=== PATIENT | male | born 1970 | race Caucasian/White ===

== ENCOUNTER 2023-03-11 21:40 | Inpatient (IN) | payer MEDICAID ==
[~2023-03-11] VITALS: Ht 175.3 cm; Wt 121.1 kg
[2023-03-11 22:02] VITALS: BP_SYST 163
[2023-03-11 22:36] LABS: BASOPHILS % (AUTO) 0.7 % (0.0-2.0); EOSINOPHILS # (AUTO) 0.3 K/uL (0.0-0.4); EOSINOPHILS % (AUTO) 5.2 % (0.0-4.0); HEMATOCRIT 37.7 % (36-54); HEMOGLOBIN 12.3 g/dL (14.0-18.0); LYMPHOCYTES # (AUTO) 1.3 K/uL (1.0-5.5); LYMPHOCYTES % (AUTO) 21.1 % (20.5-51.5); MEAN CORPUSCULAR HEMOGLOBIN 28 pg (27-31); MEAN CORPUSCULAR HGB CONC 33 % (32-36); MEAN CORPUSCULAR VOLUME 85 fL (79.0-98.0); MONOCYTES # (AUTO) 0.8 K/uL (0.0-1.0); MONOCYTES % (AUTO) 12.4 % (1.7-9.3); NEUTROPHILS # (AUTO) 3.9 K/uL (1.8-7.7); NEUTROPHILS % (AUTO) 60.6 % (40.0-70.0); PLATELET COUNT (AUTO) 185 K/uL (130-430); RED BLOOD CELL COUNT(AUTO) 4.43 MIL/uL (4.2-6.2); RED CELL DISTRIBUTION WIDTH 16.2 % (9.0-15.0); WHITE BLOOD COUNT (AUTO) 6.4 K/uL (4.8-10.8)
[2023-03-11 22:50] LABS: ALANINE AMINOTRANSFERASE 31 U/L (12-78); ALBUMIN 2.8 g/dL (3.4-4.8); ANION GAP 7 (5-15); ASPARTATE AMINOTRANSFERASE 43 U/L (10-37); CALCIUM 8.1 mg/dL (8.4-11.0); CHLORIDE 103 mmol/L (98-107); CREATININE 0.94 mg/dL (0.55-1.30); GFR AFRICAN AMERICAN 109 mL/min (>90); GLUCOSE 147 mg/dL (70-99); TOTAL BILIRUBIN 0.7 mg/dL (0.0-1.0); UREA NITROGEN, BLOOD 12 mg/dL (8-21)
[2023-03-11] MEDS ORDERED: FUROSEMIDE 40 MG/4 ML VIAL IVP ONE (23:30)
[2023-03-12] MEDS ORDERED: SPIR25TA PO (00:20)
[2023-03-12] MEDS ORDERED: FURO-149 PO (00:20)
[2023-03-12] MEDS ORDERED: LISI2.5T48 PO (00:20)
[2023-03-12] MEDS ORDERED: CARV3.1246 PO (00:21)
[2023-03-12 01:53] VITALS: BP_SYST 129
[2023-03-12 07:51] VITALS: BP_SYST 103
[2023-03-12] MEDS ORDERED: FUROSEMIDE 40 MG/4 ML VIAL IVP ONE (09:00)
[2023-03-12] MEDS ORDERED: lisinopriL 5 MG TABLET PO ONE (09:45)
[2023-03-12] MEDS ORDERED: CARVEDILOL 3.125 MG TABLET (COREG) PO ONE (09:45)
[2023-03-12 10:59] VITALS: BP_SYST 139
[2023-03-12] MEDS: SPIRONOLACTONE 25 MG TABLET (ALDACTONE) PO ONE ×2 (11:01→11:07)
[2023-03-12] MEDS: INSULIN LISPRO SLIDING SCALE 100 UNITS/ML, 3 ML VIAL (humaLOG) SUBCUT PRN ×2 (11:25→21:54)
[2023-03-12 12:35] LABS: BARBITURATE, URINE NEGATIVE (NEG <=200); BENZODIAZEPINE, URINE NEGATIVE (NEG <=150); CANNABINOID, URINE NEGATIVE (NEG <=50); COCAINE, URINE NEGATIVE (NEG <=150); METHAMPHETAMINES SCREEN,URINE NEGATIVE (NEG <=500); OPIATE, URINE NEGATIVE (NEG <=100); PHENCYCLIDINE SCREEN,URINE NEGATIVE (NEG <=25); UR TRICYCLIC ANTIDEPRESSANTS NEGATIVE (NEG <=300); URINE AMPHETAMINE NEGATIVE (NEG <=500); URINE METHADONE NEGATIVE (NEG <=200); URINE OXYCODONE SCREEN NEGATIVE (NEG <=100); URINE PROPOXYPHENE SCREEN NEGATIVE (NEG <=300)
[2023-03-12] MEDS ORDERED: LOSARTAN POTASSIUM 25 MG TABLET PO ONE (13:00)
[2023-03-12] MEDS ORDERED: FUROSEMIDE 20 MG/2 ML VIAL IVP ONE (14:00)
[2023-03-12 15:13] VITALS: BP_SYST 143
[2023-03-12] MEDS: FUROSEMIDE 20 MG/2 ML VIAL IVP SCH (15:17)
[2023-03-12 20:00] VITALS: BP_SYST 154
[2023-03-12] MEDS ORDERED: CARVEDILOL 3.125 MG TABLET (COREG) PO SCH (21:00)
[2023-03-12] MEDS: CARVEDILOL 3.125 MG TABLET (COREG) PO SCH (21:52)
[2023-03-13] VITALS: BP_SYST 132
[2023-03-13 04:00] VITALS: BP_SYST 149
[2023-03-13 07:56] VITALS: BP_SYST 136
[2023-03-13] MEDS: CARVEDILOL 3.125 MG TABLET (COREG) PO SCH ×2 (08:26→20:41)
[2023-03-13] MEDS: LOSARTAN POTASSIUM 25 MG TABLET PO SCH (08:27)
[2023-03-13] MEDS: SPIRONOLACTONE 25 MG TABLET (ALDACTONE) PO SCH (08:28)
[2023-03-13] MEDS: FUROSEMIDE 20 MG/2 ML VIAL IVP SCH ×2 (08:28→14:46)
[2023-03-13] MEDS ORDERED: lisinopriL 5 MG TABLET PO SCH (09:00)
[2023-03-13] MEDS: INSULIN LISPRO SLIDING SCALE 100 UNITS/ML, 3 ML VIAL (humaLOG) SUBCUT PRN ×3 (11:37→20:43)
[2023-03-13] MEDS ORDERED: HEPARIN SODIUM,PORCINE 5,000 UNITS/ML VIAL SUBCUT ONE (12:30)
[2023-03-13 13:00] VITALS: BP_SYST 119
[2023-03-13 18:09] VITALS: BP_SYST 110
[2023-03-13] MEDS: HEPARIN SODIUM,PORCINE 5,000 UNITS/ML VIAL SUBCUT SCH (20:43)
[2023-03-13 21:00] VITALS: BP_SYST 124
[2023-03-14 01:00] VITALS: BP_SYST 137
[2023-03-14 08:00] VITALS: BP_SYST 99
[2023-03-14] MEDS ORDERED: COR3.125 PO (08:47)
[2023-03-14] MEDS ORDERED: FURO-149 PO (08:47)
[2023-03-14] MEDS ORDERED: POTA-178 PO (08:47)
[2023-03-14] MEDS ORDERED: SPIR25TA6 PO (08:47)
[2023-03-14] MEDS: HEPARIN SODIUM,PORCINE 5,000 UNITS/ML VIAL SUBCUT SCH (09:00)
[2023-03-14] MEDS: FUROSEMIDE 20 MG/2 ML VIAL IVP SCH (10:33)
[2023-03-14] MEDS: CARVEDILOL 3.125 MG TABLET (COREG) PO SCH (10:34)
[2023-03-14] MEDS: SPIRONOLACTONE 25 MG TABLET (ALDACTONE) PO SCH (10:34)
[2023-03-14] MEDS: LOSARTAN POTASSIUM 25 MG TABLET PO SCH (10:35)
[2023-03-14 11:03] VITALS: BP_SYST 124
[2023-03-14 11:15] VITALS: BP_SYST 129
== END 2023-03-14 12:05 | disposition home or self-care (01) | DRG 194 ==
LOC: SED 21:40 → STU 03-12 00:11
PROVIDERS: ADMIT Family Medicine; ATTEND Family Medicine
DX: I11.0 Hypertensive heart disease with heart failure (principal); R65.11 Systemic inflammatory response syndrome (SIRS) of non-infectious origin with acute organ dysfunction; I42.7 Cardiomyopathy due to drug and external agent; E44.0 Moderate protein-calorie malnutrition; I50.43 Acute on chronic combined systolic (congestive) and diastolic (congestive) heart failure; E83.51 Hypocalcemia; F10.10 Alcohol abuse, uncomplicated; T50.905A Adverse effect of unspecified drugs, medicaments and biological substances, initial encounter; Y90.9 Presence of alcohol in blood, level not specified; E66.9 Obesity, unspecified; Z20.822 Contact with and (suspected) exposure to COVID-19; Z88.0 Allergy status to penicillin; Z88.8 Allergy status to other drugs, medicaments and biological substances; Z79.899 Other long term (current) drug therapy; Z79.84 Long term (current) use of oral hypoglycemic drugs; Z68.39 Body mass index [BMI] 39.0-39.9, adult; Y92.89 Other specified places as the place of occurrence of the external cause
CPT/HCPCS: 36415; 71045; 80053; 80307; 82962; 83880; 84484; 85025; 93005; 93306; 99285; G0378; J1644; J1940